=== PATIENT | female | born 1960 | race Caucasian/White ===

== ENCOUNTER 2016-03-03 08:28 | Emergency (ER) | payer OTHER ==
[~2016-03-03] VITALS: Ht 167.6 cm; Wt 58.6 kg
[~2016-03-03 08:28] MED LIST: GABA-526 PO; LITH300C PO; LTH150C PO; OMEP40CA6 PO; OXYB5SYR2 PO; PROP20TA4 PO; QUET200T23 PO
[2016-03-03 08:37] VITALS: Ht 167.6 cm; Wt 58.6 kg
[2016-03-03] MEDS ORDERED: ONDANSETRON 4 MG INJ ONE (08:58)
[2016-03-03] MEDS ORDERED: LORAZEPAM 1 MG TAB PO ONE (09:00)
[2016-03-03] MEDS ORDERED: ONDANSETRON (ODT) 4 MG TAB ODT STA (09:02)
[2016-03-03 10:21] VITALS: BP 103/60; PULSE 95; RESP 20; TEMP 98.3
[2016-03-03] MEDS ORDERED: CHLO25CA9 PO (10:42)
--- NOTE | 2016-03-03 11:15 | ERD ---
ER Documentation Chief Complaint Date/Time DATE: 03/03/16 TIME: 11:07 Chief Complaint BROUGHT IN VIA EMS DUE TO ALCOHOL WITHDRAWAL HPI This 56-year-old female presents with feeling shaky and nausea after binge drinking yesterday. States that she has been not drinking lately other she's had alcoholism in the past. She is on the wagon until a friend of hers past and she was having trouble coping so she drank alcohol. She has no suicidal or homicidal ideations. Denies fevers chills chest pain or shortness of breath. ROS All systems reviewed and are negative except as per history of present illness. Medications Home Meds Active Scripts Chlordiazepoxide* (Chlordiazepoxide*) 25 Mg Capsule, 25 MG PO DAILY, #10 CAP Take 3 tabs tomorrow on 03/03 Then 3 tabs the next day. Then 2 tabs for 3 days Then take 1 tab per day until gone Prov:TREE NICHOLSON DO 03/03/16 Reported Medications [place] Carbonate* (Del Sol*) 150 Mg Cap, 150 MG PO TID, CAP 12/08/15 [place] Carbonate* (Eskalith*) 300 Mg Capsule, 300 MG PO TID, CAP 12/08/15 Gabapentin* (Gabapentin*) 600 Mg Tablet, 600 MG PO BID, #60 TAB 12/08/15 Oxybutynin Chloride* (Oxybutynin Chloride*) 5 Mg/5 Ml Syrup, 5 MG PO DAILY, ML 11/01/15 Omeprazole* (Omeprazole*) 40 Mg Capsule.dr, 40 MG PO DAILY, #30 CAP 11/01/15 Quetiapine Fumarate* (Seroquel*) 200 Mg Tablet, 200 MG PO HS, #30 TAB 04/19/15 Propranolol Hcl* (Propranolol Hcl*) 20 Mg Tablet, 20 MG PO BID, TAB 12/26/14 Allergies Allergies: Coded Allergies: No Known Allergy (Unverified , 12/08/15) PMhx/Soc History of Surgery: Yes (EAR DRUM PLACEMENT) Anesthesia Reaction: No Hx Neurological Disorder: No Hx Respiratory Disorders: No Hx Cardiac Disorders: No Hx Psychiatric Problems: Yes (Bipolar, depression, anxiety) Hx Miscellaneous Medical Probl: Yes (HYSTERECTOMY, alcoholism) Hx Alcohol Use: Yes (daily) Hx Substance Use: No Hx Tobacco Use: Yes Smoking Status: Never smoker Physical Exam Vitals Vital Signs Date Time Temp Pulse Resp B/P Pulse Ox O2 Delivery O2 Flow Rate FiO2 03/03/16 10:21 98.3 95 20 103/60 100 Room Air 03/03/16 08:37 98.5 64 20 144/88 97 Physical Exam Const: [] No distress, apparently comfortable in a wheelchair Head: Atraumatic Eyes: Normal Conjunctiva, EOMI, PERRLA ENT: Normal External Ears, Nose and Mouth., Moist because membranes. Neck: Full range of motion..~ No meningismus. Resp: Clear to auscultation bilaterally Cardio: Regular rate and rhythm, no murmurs Abd: Soft, non tender, non distended. Normal bowel sounds Skin: No petechiae or rashes Back: No midline or flank tenderness Ext: No cyanosis, or edema Neur: Awake and alert oriented 3, cranial nerves II through XII intact, no cerebellar deficits, normal gait and no slurred speech. Psych: Normal Mood and Affect Results 24 hrs Current Medications Medications (Trade) Dose Ordered Sig/Donnie Route PRN Reason Start Time Stop Time Status Last Admin Dose Admin Lorazepam (Ativan) 1 mg ONCE ONCE PO 03/03/16 09:00 03/03/16 09:01 DC 03/03/16 09:01 Ondansetron HCl (Zofran Inj) 4 mg STK-MED ONCE .ROUTE 03/03/16 08:58 03/03/16 08:59 DC Ondansetron HCl (Zofran Odt) 4 mg ONCE STAT ODT 03/03/16 09:02 03/03/16 09:03 DC 03/03/16 09:11 Procedures/MDM Nausea and feeling "shaky" after binge drinking the night before. Patient has a heart rate of 66 and no signs of acute withdrawal and impending DTs. She was given Ativan by mouth and Zofran ODT which made her feel much better. Is taking good by mouth in the emergency room. I counseled her at the bedside for several minutes on alcohol cessation. She agrees that she needs to quit. We'll provide her with resources on this. A Renee giving her Librium taper to prevent withdrawals. I'm discharging with primary care follow-up in the next 2 days as well as the resources for alcohol detoxification. Departure Diagnosis: Primary Impression: Alcohol abuse Additional Impression: Nausea Condition: Stable Patient Instructions: Alcoholism: Getting Help Additional Instructions: Call your primary care doctor TOMORROW for an appointment during the next 1-2 days.See the doctor sooner or return here if your condition worsens before your appointment time. TREE NICHOLSON DO Mar 03, 2016 11:15
== END 2016-03-03 11:00 | disposition home or self-care (01) ==
LOC: E/R 08:28
DX: F10.10 Alcohol abuse, uncomplicated (principal); Z72.0 Tobacco use
CPT/HCPCS: J2405; Z7610; 99283

== ENCOUNTER 2016-03-10 21:15 | Emergency (ER) | payer OTHER ==
[~2016-03-10] VITALS: Ht 152.4 cm; Wt 55.0 kg
[~2016-03-10 21:15] MED LIST changes: +CHLO25CA9 PO; +QUET200T PO; -QUET200T23 PO
[2016-03-10 21:27] VITALS: Ht 152.4 cm; Wt 55.0 kg
[2016-03-10] MEDS ORDERED: HALOPERIDOL 5 MG INJ ONE (21:43)
[2016-03-10] MEDS ORDERED: DIPHENHYDRAMINE 50 MG INJ ONE (21:43)
[2016-03-10] MEDS ORDERED: LORAZEPAM 2 MG INJ ONE (21:43)
[2016-03-10] MEDS ORDERED: HALOPERIDOL 5 MG INJ IM ONE (22:00)
[2016-03-10] MEDS ORDERED: LORAZEPAM 2 MG INJ IM ONE (22:00)
[2016-03-10] MEDS ORDERED: DIPHENHYDRAMINE 50 MG INJ IM ONE (22:00)
--- NOTE | 2016-03-10 23:47 | ERD ---
ER Documentation Chief Complaint Date/Time DATE: 03/10/16 TIME: 23:47 Chief Complaint PT ELENA FROM HOME, ETOH. HPI Is a 56-year-old female was found down sleeping on the ground secondary to alcohol abuse. No evidence of trauma. Patient is combative here. Patient given Haldol and Ativan secondary to combative and d drunk behavior ROS All systems reviewed and are negative except as per history of present illness. Medications Home Meds Active Scripts Chlordiazepoxide* (Chlordiazepoxide*) 25 Mg Capsule, 25 MG PO DAILY, #10 CAP Take 3 tabs tomorrow on 03/03 Then 3 tabs the next day. Then 2 tabs for 3 days Then take 1 tab per day until gone Prov:LYNYASMINTREE DO 03/03/16 Reported Medications [place] Carbonate* ([place]*) 150 Mg Cap, 150 MG PO TID, CAP 12/08/15 [place] Carbonate* (Eskalith*) 300 Mg Capsule, 300 MG PO TID, CAP 12/08/15 Gabapentin* (Gabapentin*) 600 Mg Tablet, 600 MG PO BID, #60 TAB 12/08/15 Oxybutynin Chloride* (Oxybutynin Chloride*) 5 Mg/5 Ml Syrup, 5 MG PO DAILY, ML 11/01/15 Omeprazole* (Omeprazole*) 40 Mg Capsule.dr, 40 MG PO DAILY, #30 CAP 11/01/15 Quetiapine Fumarate* (Seroquel*) 200 Mg Tablet, 200 MG PO HS, #30 TAB 04/19/15 Propranolol Hcl* (Propranolol Hcl*) 20 Mg Tablet, 20 MG PO BID, TAB 12/26/14 Allergies Allergies: Coded Allergies: No Known Allergy (Unverified , 12/08/15) PMhx/Soc History of Surgery: Yes (EAR DRUM PLACEMENT) Anesthesia Reaction: No Hx Neurological Disorder: No Hx Respiratory Disorders: No Hx Cardiac Disorders: No Hx Psychiatric Problems: Yes (Bipolar, depression, anxiety) Hx Miscellaneous Medical Probl: Yes (HYSTERECTOMY, alcoholism) Hx Alcohol Use: Yes (daily) Hx Substance Use: No Hx Tobacco Use: Yes Smoking Status: Unknown if ever smoked Physical Exam Vitals Vital Signs Date Time Temp Pulse Resp B/P Pulse Ox O2 Delivery O2 Flow Rate FiO2 03/10/16 21:27 97.8 95 15 99/61 95 Physical Exam Const: [] Head: Atraumatic Eyes: Normal Conjunctiva ENT: Normal External Ears, Nose and Mouth. Neck: Full range of motion..~ No meningismus. Resp: Clear to auscultation bilaterally Cardio: Regular rate and rhythm, no murmurs Abd: Soft, non tender, non distended. Normal bowel sounds Skin: No petechiae or rashes Back: No midline or flank tenderness Ext: No cyanosis, or edema Neur: Awake and alert Psych: Normal Mood and Affect Results 24 hrs Current Medications Medications (Trade) Dose Ordered Sig/Donnie Route PRN Reason Start Time Stop Time Status Last Admin Dose Admin Haloperidol (Haldol) 5 mg ONCE ONCE IM 03/10/16 22:00 03/10/16 22:01 DC 03/10/16 21:57 Lorazepam (Ativan) 2 mg ONCE ONCE IM 03/10/16 22:00 03/10/16 22:01 DC 03/10/16 21:56 Diphenhydramine HCl (Benadryl) 50 mg ONCE ONCE IM 03/10/16 22:00 03/10/16 22:01 DC 03/10/16 21:57 Diphenhydramine HCl (Benadryl) 50 mg STK-MED ONCE .ROUTE 03/10/16 21:43 03/10/16 21:44 DC Haloperidol (Haldol) 5 mg STK-MED ONCE .ROUTE 03/10/16 21:43 03/10/16 21:44 DC Lorazepam (Ativan) 2 mg STK-MED ONCE .ROUTE 03/10/16 21:43 03/10/16 21:44 DC Procedures/MDM This is a patient comes in multiple times for alcohol intoxication. At this point is clinically stable patient in last summer. She was discharged home. Observation Note: Time: 4 hours Family Hx: No Hypertension Evaluation: Multiple exams showed improving symptoms and no evidence of [ XOXOXO] Departure Diagnosis: Primary Impression: Alcoholic intoxication Complication of substance-induced condition: uncomplicated Qualified Code: F10.120 - Alcoholic intoxication, uncomplicated Condition: Stable RUIZ PHAMGhazala Mar 10, 2016 23:47
[2016-03-11 05:50] VITALS: BP 98/58; PULSE 79; RESP 18
== END 2016-03-11 05:55 | disposition home or self-care (01) ==
LOC: E/R 21:15
DX: F10.120 Alcohol abuse with intoxication, uncomplicated (principal); R40.2242 Coma scale, best verbal response, confused conversation, at arrival to emergency department; R40.2362 Coma scale, best motor response, obeys commands, at arrival to emergency department; R40.2142 Coma scale, eyes open, spontaneous, at arrival to emergency department; Z87.891 Personal history of nicotine dependence
CPT/HCPCS: 96372; J1200; J1630; J2060; Z7502

== ENCOUNTER 2016-07-27 13:27 | Emergency (ER) | payer OTHER ==
[~2016-07-27] VITALS: Ht 165.1 cm; Wt 62.7 kg
[2016-07-27] MEDS ORDERED: ONDANSETRON (ODT) 4 MG TAB ODT STA (13:29)
[2016-07-27] MEDS ORDERED: LORAZEPAM 1 MG TAB PO ONE (13:30)
[2016-07-27 13:38] VITALS: BP 99/49; PULSE 52; RESP 18
[2016-07-27] MEDS ORDERED: ONDA4TAB14 PO (13:41)
[2016-07-27 13:42] VITALS: Ht 165.1 cm; Wt 62.7 kg
--- NOTE | 2016-07-27 15:06 | ERD ---
ER Documentation Chief Complaint Date/Time DATE: 07/27/16 TIME: 15:05 Chief Complaint anxiety HPI Patient is a 56-year-old female with alcohol abuse and sciatica who presents with withdrawal. She said that she has been sober for 5 months but drank alcohol last night at 9:30 PM. She also is seeing a pain management doctor and is been changed from a 10 mg buprenorphine patch to a 5 mg buprenorphine patch. The patient is feeling withdrawal symptoms. She feels anxious. She was brought in by ambulance. Upon review of old medical records the patient has multiple visits to the ER for similar complaints. Review of the emergency department information exchange shows visits to 4 separate emergency departments. ROS All systems reviewed and are negative except as per history of present illness. Medications Home Meds Active Scripts Ondansetron (Ondansetron Odt) 4 Mg Tab.rapdis, 4 MG PO Q6H Y for NAUSEA AND/OR VOMITING, #10 TAB Prov:JO VELEZ MD 07/27/16 Chlordiazepoxide* (Chlordiazepoxide*) 25 Mg Capsule, 25 MG PO DAILY, #10 CAP Take 3 tabs tomorrow on 03/03 Then 3 tabs the next day. Then 2 tabs for 3 days Then take 1 tab per day until gone Prov:TREE NICHOLSON DO 03/03/16 Reported Medications [place] Carbonate* (Cabot*) 150 Mg Cap, 150 MG PO TID, CAP 12/08/15 [place] Carbonate* (Eskalith*) 300 Mg Capsule, 300 MG PO TID, CAP 12/08/15 Gabapentin* (Gabapentin*) 600 Mg Tablet, 600 MG PO BID, #60 TAB 12/08/15 Oxybutynin Chloride* (Oxybutynin Chloride*) 5 Mg/5 Ml Syrup, 5 MG PO DAILY, ML 11/01/15 Omeprazole* (Omeprazole*) 40 Mg Capsule.dr, 40 MG PO DAILY, #30 CAP 11/01/15 Quetiapine Fumarate* (Seroquel*) 200 Mg Tablet, 200 MG PO HS, #30 TAB 04/19/15 Propranolol Hcl* (Propranolol Hcl*) 20 Mg Tablet, 20 MG PO BID, TAB 12/26/14 Allergies Allergies: Coded Allergies: No Known Allergy (Unverified , 12/08/15) PMhx/Soc Medical and Surgical Hx: pt denies Medical Hx, pt denies Surgical Hx History of Surgery: Yes (EAR DRUM PLACEMENT) Anesthesia Reaction: No Hx Neurological Disorder: No Hx Respiratory Disorders: No Hx Cardiac Disorders: No Hx Psychiatric Problems: No Hx Miscellaneous Medical Probl: No Hx Alcohol Use: Yes Hx Substance Use: Yes Hx Tobacco Use: No Smoking Status: Never smoker FmHx Family History: No diabetes Physical Exam Vitals Vital Signs Date Time Temp Pulse Resp B/P Pulse Ox O2 Delivery O2 Flow Rate FiO2 07/27/16 13:42 52 18 99/49 92 07/27/16 13:38 52 18 99/49 92 Room Air Physical Exam Const: Anxious Head: Atraumatic Eyes: Normal Conjunctiva ENT: Normal External Ears, Nose and Mouth. Neck: Full range of motion..~ No meningismus. Resp: Clear to auscultation bilaterally Cardio: Regular rate and rhythm, no murmurs Abd: Soft, non tender, non distended. Normal bowel sounds Skin: No petechiae or rashes Back: No midline or flank tenderness Ext: No cyanosis, or edema Neur: Awake and alert Psych: Anxious but without suicidal or homicidal ideation Results 24 hrs Current Medications Medications (Trade) Dose Ordered Sig/Donnie Route PRN Reason Start Time Stop Time Status Last Admin Dose Admin Lorazepam (Ativan) 1 mg ONCE ONCE PO 07/27/16 13:30 07/27/16 13:31 DC 07/27/16 13:38 Ondansetron HCl (Zofran Odt) 4 mg ONCE STAT ODT 07/27/16 13:29 07/27/16 13:30 DC 07/27/16 13:38 Procedures/MDM Patient is a 56-year-old female with alcohol abuse who presents with what appears to be withdrawal. The patient was given Ativan and Zofran and feels better. I do not believe she requires further workup or admission the hospital at this time. I doubt delirium tremens. The patient will be discharged home but will need to follow-up with the [facility] where she [facility] for her medical care. She can return for any worsening symptoms. I will not give her any prescriptions for controlled substances. I will give her prescription for Zofran as she said that she is having nausea and vomiting. Departure Diagnosis: Primary Impression: Withdrawal complaint Additional Impression: Anxiety attack Condition: Fair Patient Instructions: Alcohol Withdrawal, Panic Attack Additional Instructions: Call your primary care doctor TOMORROW for an appointment during the next 1-2 days.See the doctor sooner or return here if your condition worsens before your appointment time. JO VELEZ MD Jul 27, 2016 15:06
== END 2016-07-27 13:45 | disposition home or self-care (01) ==
LOC: E/R 13:27
DX: F41.9 Anxiety disorder, unspecified (principal); R40.2252 Coma scale, best verbal response, oriented, at arrival to emergency department; R40.2142 Coma scale, eyes open, spontaneous, at arrival to emergency department; R40.2362 Coma scale, best motor response, obeys commands, at arrival to emergency department
CPT/HCPCS: Z7502; Z7610; 99283

== ENCOUNTER 2016-08-21 10:50 | Emergency (ER) | payer OTHER ==
[~2016-08-21] VITALS: Ht 165.1 cm; Wt 65.9 kg
[~2016-08-21 10:50] MED LIST changes: +ONDA4TAB14 PO
[2016-08-21 10:54] VITALS: Ht 165.1 cm; Wt 65.9 kg
[2016-08-21] MEDS ORDERED: HALOPERIDOL 5 MG INJ IM ONE (11:00)
[2016-08-21 11:18] VITALS: PULSE 100; RESP 20
[2016-08-21] MEDS ORDERED: METHYLPREDNISOLONE 125 MG INJ IV ONE (12:00)
--- NOTE | 2016-08-21 15:03 | ERD ---
ER Documentation Chief Complaint Date/Time DATE: 08/21/16 TIME: 15:00 Chief Complaint BIB RA C/O ETOH INTOXICATION. PER PARAMEDICS PATIENT DRANK 1 BOTTLE VODKA HPI This 56-year-old female comes emergency room because a neighbor complained that she was on her couch yelling and drunk. Patient admits to drinking vodka today and admits to being intoxicated. She requests Ativan because "I like it". She denies any pain or any other physical symptoms. She does admit to drinking about 3 days a week. She has never gone through delirium tremens. She denies any trauma. ROS All systems reviewed and are negative except as per history of present illness. Medications Home Meds Active Scripts Ondansetron (Ondansetron Odt) 4 Mg Tab.rapdis, 4 MG PO Q6H Y for NAUSEA AND/OR VOMITING, #10 TAB Prov:JO VELEZ MD 07/27/16 Chlordiazepoxide* (Chlordiazepoxide*) 25 Mg Capsule, 25 MG PO DAILY, #10 CAP Take 3 tabs tomorrow on 03/03 Then 3 tabs the next day. Then 2 tabs for 3 days Then take 1 tab per day until gone Prov:TREE NICHOLSON DO 03/03/16 Reported Medications [place] Carbonate* ([place]*) 150 Mg Cap, 150 MG PO TID, CAP 12/08/15 [place] Carbonate* (Eskalith*) 300 Mg Capsule, 300 MG PO TID, CAP 12/08/15 Gabapentin* (Gabapentin*) 600 Mg Tablet, 600 MG PO BID, #60 TAB 12/08/15 Oxybutynin Chloride* (Oxybutynin Chloride*) 5 Mg/5 Ml Syrup, 5 MG PO DAILY, ML 11/01/15 Omeprazole* (Omeprazole*) 40 Mg Capsule.dr, 40 MG PO DAILY, #30 CAP 11/01/15 Quetiapine Fumarate* (Seroquel*) 200 Mg Tablet, 200 MG PO HS, #30 TAB 04/19/15 Propranolol Hcl* (Propranolol Hcl*) 20 Mg Tablet, 20 MG PO BID, TAB 12/26/14 Allergies Allergies: Coded Allergies: No Known Allergy (Unverified , 12/08/15) PMhx/Soc History of Surgery: Yes (EAR DRUM PLACEMENT) Anesthesia Reaction: No Hx Neurological Disorder: No Hx Respiratory Disorders: No Hx Cardiac Disorders: No Hx Psychiatric Problems: No Hx Miscellaneous Medical Probl: No Hx Alcohol Use: Yes Hx Substance Use: Yes Hx Tobacco Use: No Physical Exam Vitals Vital Signs Date Time Temp Pulse Resp B/P Pulse Ox O2 Delivery O2 Flow Rate FiO2 08/21/16 11:18 100 20 95 Room Air 08/21/16 10:54 98.7 82 20 142/72 100 Physical Exam Const: [] No distress, very agitated Head: Atraumatic Eyes: Normal Conjunctiva ENT: Normal External Ears, Nose and Mouth. Neck: Full range of motion..~ No meningismus. Resp: Clear to auscultation bilaterally Cardio: Regular rate and rhythm, no murmurs Abd: Soft, non tender, non distended. Normal bowel sounds Skin: No petechiae or rashes Back: No midline or flank tenderness Ext: No cyanosis, or edema Neur: Awake and alert and oriented 3, slight slurred speech, very agitated but able to cooperate with core cranial nerve exam, did not cooperate with finger to nose exam. Psych: Very agitated Results 24 hrs Current Medications Medications (Trade) Dose Ordered Sig/Donnie Route PRN Reason Start Time Stop Time Status Last Admin Dose Admin Haloperidol (Haldol) 5 mg ONCE ONCE IM 08/21/16 11:00 08/21/16 11:01 DC 08/21/16 11:06 Methylprednisolone Sodium Succinate (Solu-Medrol) 125 mg ONCE ONCE IV 08/21/16 12:00 08/21/16 12:15 DC Procedures/MDM 56-year-old intoxicated female. She was observed in the emergency room for over 4 hours during which she was allowed to sober up. She was initially given 5 mg of Haldol which did calm her down but she did not sleep. Performed a repeat neurologic exam at the 4 hour hosea when she was ambulating emergency room and acting calm and rational. She still has no signs of trauma. Has a totally normal neurological exam. I spent greater than 3 minutes discussing the dangers of alcoholism. Going to discharge with primary care follow-up and return precautions. Departure Diagnosis: Primary Impression: Alcoholic intoxication Condition: Stable Patient Instructions: Alcohol Intoxication, Alcohol Abuse Referrals: SHERWIN GRIGGS (PCP) Additional Instructions: Call your primary care doctor TOMORROW for an appointment during the next 1-2 days.See the doctor sooner or return here if your condition worsens before your appointment time. TREE NICHOLSON DO Aug 21, 2016 15:03
== END 2016-08-21 13:00 | disposition home or self-care (01) ==
LOC: E/R 10:50
DX: F10.120 Alcohol abuse with intoxication, uncomplicated (principal)
CPT/HCPCS: 96372; J1630; Z7502

== ENCOUNTER 2016-09-18 09:11 | Inpatient (IN) | payer OTHER ==
[2016-09-17 17:19] VITALS: BMI 23.1
[~2016-09-18] VITALS: Ht 165.1 cm; Wt 61.0 kg
[2016-09-18] VITALS (17 sets, daily range): BP systolic 102–138; BP diastolic 60–88; PULSE 64–85; RESP 13–31; Ht 165.1 cm; Wt 61.0 kg
[2016-09-18] MEDS ORDERED: DICY10CA60 PO (10:00)
[2016-09-18] MEDS ORDERED: OMEP20CA16 PO (10:00)
[2016-09-18] MEDS ORDERED: IBUP800T25 PO (10:01)
[2016-09-18] MEDS ORDERED: HYDR-3011 PO (10:02)
[2016-09-18] MEDS ORDERED: SOD CHLORIDE 0.9% 1,000 ML IV SCH (10:30)
[2016-09-18] MEDS ORDERED: CEFAZOLIN 2 GM/50 ML (PMX) 50 ML IVPB ONE (10:30)
[2016-09-18] MEDS ORDERED: LIDOCAINE 2% (SDV) 5 ML INJ ONE (12:00)
[2016-09-18] MEDS ORDERED: MIDAZOLAM 1 MG/ML 2 ML INJ ONE (12:23)
[2016-09-18] MEDS ORDERED: ROCURONIUM 50 MG INJ ONE (12:38)
[2016-09-18] MEDS ORDERED: PROPOFOL 60 ML ONE (12:38)
[2016-09-18] MEDS ORDERED: FENTAnyl 50 MCG/ML VIAL ONE (12:38)
[2016-09-18] MEDS ORDERED: DEXAMETHASONE 4 MG/ML 1 ML INJ ONE (12:39)
[2016-09-18] MEDS ORDERED: BUPIVACAINE 0.25% (MPF) 30 ML INJ ONE (12:40)
[2016-09-18] MEDS ORDERED: morphine 10 MG INJ ONE (12:52)
[2016-09-18] MEDS ORDERED: NEOSTIGMINE 3 MG/3 ML SYRINGE ONE (13:25)
[2016-09-18] MEDS ORDERED: GLYCOPYRROLATE 0.4 MG INJ ONE (13:26)
[2016-09-18] MEDS ORDERED: ONDANSETRON 4 MG INJ ONE (13:29)
[2016-09-18] MEDS ORDERED: KETOROLAC 30 MG INJ IV PRN (13:30)
[2016-09-18] MEDS ORDERED: CEFAZOLIN 2 GM/50 ML (PMX) 50 ML IVPB SCH (13:30)
[2016-09-18] MEDS ORDERED: LORAZEPAM 2 MG INJ ONE (13:51)
--- NOTE | 2016-09-18 13:56 | OPR ---
Date/Time of Note Date/Time of Note DATE: 09/18/16 TIME: 13:39 Operative Report Procedure Date: Sep 18, 2016 Preoperative Diagnosis incarcerated incisional hernia Postoperative Diagnosis 1. incarcerated incisional hernia 2. umbilical hernia Operation Performed 1. incarcerated incisional hernia repair cpt code 04503 2. umbilical hernia repair cpt code 46920 3. implantation of abdominal 92206 4. therapeutic injection of subcutaneous marcaine [id number] 5. lysis of adhesions one hour Surgeon: Boniat ANDRE Indications This is a 56-year-old female who has had prior ventral surgery. Patient developed an incarcerated incisional hernia. She required surgical repair. Additionally she has a reducible umbilical hernia which requests for repair. Risks alternatives benefits and percent were discussed the patient. Patient expresses understanding consents to the operation. Procedure Description Patient is taken to the OR and prepped and draped in usual sterile fashion. Surgical timeout was performed. IV antibiotics were given. Midline incision was made with a 10 blade over the prior incision. Dissection cautery was carried onto the hernia. The size of the hernia grasped with Vinay's. The hernia was entered sharply with Metzenbaum scissors. The incarcerated hernia was then reduced. The hernia had adhesions to the skin. The small bowel and omentum had also adhesions to the anterior abdominal wall. This was lysed. Lysis of adhesions was performed. This took approximately 1 hour. The fascial edges are identified. Approximately 2 3 cm the fascial edges were identified in all directions. An umbilical hernia was identified. This was reducible. This was closed with interrupted #1 Prolene. Underlay mesh with ventral light ST mesh 15 x 20 cm is secured in place with interrupted #1 Prolene in all directions. Approximately 45 cm of underlay coverage was placed which also covered both incisional and umbilical hernia. The midline incision was then closed with a running #1 loop PDS from superior to inferior and inferior superior performing primary closure. The wound is irrigated with antibiotic irrigation. The skin is closed using skin ana laura. Therapeutic subcutaneous Marcaine was injected all throughout the incision site. Dry dressings were applied. Bonita ANDRE Sep 18, 2016 13:49
[2016-09-18] MEDS ORDERED: MIDAZOLAM 1 MG/ML 2 ML INJ IV PRN (14:00)
[2016-09-18] MEDS ORDERED: LORAZEPAM 2 MG INJ IV PRN (14:00)
[2016-09-18] MEDS ORDERED: hydrALAzine 20 MG INJ IV PRN (14:00)
[2016-09-18] MEDS ORDERED: FENTAnyl 50 MCG/ML VIAL IV PRN ×3 (14:00)
[2016-09-18] MEDS ORDERED: LABETALOL HCL 20MG INJ IV PRN (14:00)
[2016-09-18] MEDS ORDERED: EPHEDrine SULFATE 50 MG/5 ML SYG IV PRN (14:00)
[2016-09-18] MEDS ORDERED: DIPHENHYDRAMINE 50 MG INJ IV PRN (14:00)
[2016-09-18] MEDS ORDERED: OXYCODONE/ACETAMINOPHEN (5/325) TAB PO PRN ×2 (14:00)
[2016-09-18] MEDS ORDERED: HYDROmorphONE (0.2 MG/ML) 10ML SYG IV PRN ×3 (14:00)
[2016-09-18] MEDS ORDERED: ONDANSETRON 4 MG INJ IV PRN (14:00)
[2016-09-18] MEDS ORDERED: MEPERIDINE 25 MG INJ IV PRN (14:00)
[2016-09-18] MEDS: SOD CHLORIDE 0.9% 1,000 ML IV SCH ×2 (14:05→23:29)
[2016-09-18 14:22] LABS: BASOPHILS % 0.1 % (0.0-2.0); EOSINOPHILS % 0.2 % (0.0-7.0); HEMOGLOBIN 12.6 g/dl (12.0-16.0); LYMPHOCYTES # 1.2 10^3/ul (0.8-2.9); LYMPHOCYTES % 10.4 % (15.0-51.0); MEAN CORPUSCULAR HEMOGLOBIN 29.8 pg (29.0-33.0); MEAN CORPUSCULAR HGB CONC 33.2 g/dl (32.0-37.0); MEAN CORPUSCULAR VOLUME 89.8 fl (82.0-101.0); MEAN PLATELET VOLUME 11.1 fl (7.4-10.4); MONOCYTE # 0.4 10^3/ul (0.3-0.9); MONOCYTES % 3.7 % (0.0-11.0); NEUTROPHIL # 9.5 10^3/ul (1.6-7.5); NEUTROPHILS % 85.1 % (39.0-77.0); PLATELET COUNT 219 10^3/UL (140-415); RED BLOOD COUNT 4.23 10^6/ul (4.20-5.40); RED CELL DISTRIBUTION WIDTH 13.6 % (11.5-14.5); WHITE BLOOD COUNT 11.1 10^3/ul (4.8-10.8)
[2016-09-18 14:39] LABS: ALBUMIN 4.1 g/dl (3.3-4.9); ALBUMIN/GLOBULIN RATIO 1.51; BILIRUBIN,INDIRECT 0.1 mg/dl (0-1.1); BILIRUBIN,TOTAL 0.1 mg/dl (0.2-1.3); TOTAL PROTEIN 6.8 g/dl (6.1-8.1)
[2016-09-18 14:46] LABS: CALCIUM 8.8 mg/dl (8.4-10.2); CREATININE 0.93 mg/dl (0.44-1.00); POTASSIUM 4.2 mmol/L (3.5-5.1)
[2016-09-18] MEDS: HYDROmorphONE 1 MG/ML SYG IV PRN ×2 (16:40→20:35)
[2016-09-18] MEDS: ONDANSETRON 4 MG INJ IV PRN (16:40)
[2016-09-18] MEDS ORDERED: DIPHENHYDRAMINE 25 MG CAP PO PRN (17:00)
[2016-09-18] MEDS: CEFAZOLIN 2 GM/50 ML (PMX) 50 ML IVPB SCH (19:55)
[2016-09-18] MEDS: QUETIAPINE 100 MG TAB PO SCH (21:27)
[2016-09-19] MEDS: ONDANSETRON 4 MG INJ IV PRN ×4 (00:48→23:00)
[2016-09-19] MEDS: HYDROmorphONE 1 MG/ML SYG IV PRN ×6 (00:48→20:39)
[2016-09-19] MEDS: SOD CHLORIDE 0.9% 1,000 ML IV SCH ×3 (00:51→23:51)
[2016-09-19 01:30] VITALS: BP 121/66; RESP 16
[2016-09-19] MEDS: CEFAZOLIN 2 GM/50 ML (PMX) 50 ML IVPB SCH ×2 (04:30→12:39)
[2016-09-19 07:41] VITALS: BP 132/77; RESP 18
--- NOTE | 2016-09-19 09:10 | PN ---
Date/Time of Note Date/Time of Note DATE: 09/19/16 TIME: 09:09 Assessment/Plan VTE Prophylaxis VTE Prophylaxis Intervention: SCD's Lines/Catheters IV Catheter Type (from Nrsg): Peripheral IV Assessment/Plan Chief Complaint/Hosp Course s/p large incarcerated incisional hernia repair with mesh Problems: Assessment/Plan tolerating diet and walking ok to dc when pain under control Subjective 24 Hr Interval Summary Free Text/Dictation doing well, tolerating diet but having pain as expected Exam/Review of Systems Vital Signs Vitals Vital Signs Date Time Temp Pulse Resp B/P Pulse Ox O2 Delivery O2 Flow Rate FiO2 09/19/16 07:41 98.1 71 18 132/77 95 09/18/16 17:00 Nasal Cannula 09/18/16 16:21 2.0 Intake and Output 09/18/16 09/18/16 09/19/16 15:00 23:00 07:00 Intake Total 1000 ml 250 ml 1650 ml Output Total 40 ml Balance 960 ml 250 ml 1650 ml Exam c/d/i Results Result Diagram: 09/18/16 1415 09/18/16 1415 Results 24 hrs Laboratory Tests Test 09/18/16 14:15 White Blood Count 11.1 #H Red Blood Count 4.23 Hemoglobin 12.6 Hematocrit 38.0 Mean Corpuscular Volume 89.8 Mean Corpuscular Hemoglobin 29.8 Mean Corpuscular Hemoglobin Concent 33.2 Red Cell Distribution Width 13.6 Platelet Count 219 Mean Platelet Volume 11.1 #H Neutrophils % 85.1 H Lymphocytes % 10.4 L Monocytes % 3.7 Eosinophils % 0.2 Basophils % 0.1 Nucleated Red Blood Cells % 0.0 Neutrophils # 9.5 H Lymphocytes # 1.2 Monocytes # 0.4 Eosinophils # 0.0 Basophils # 0.0 Nucleated Red Blood Cells # 0.0 Sodium Level 147 H Potassium Level 4.2 Chloride Level 108 Carbon Dioxide Level 25 Anion Gap 18 H Blood Urea Nitrogen 13 Creatinine 0.93 Glucose Level 102 Calcium Level 8.8 Total Bilirubin 0.1 L Direct Bilirubin 0.00 Indirect Bilirubin 0.1 Aspartate Amino Transf (AST/SGOT) 33 Alanine Aminotransferase (ALT/SGPT) 69 Alkaline Phosphatase 106 Total Protein 6.8 Albumin 4.1 Globulin 2.70 Albumin/Globulin Ratio 1.51 Medications Medications Current Medications Ketorolac Tromethamine 30 mg 30 mg Q6H PRN IV PAIN; Start 09/18/16 at 13:30; Stop 09/21/16 at 13:29 Sodium Chloride 1,000 ml @ 100 mls/hr Q10H IV Last administered on 09/19/16 00 :51; Admin Dose 100 MLS/HR; Start 09/18/16 at 13:29 Cefazolin Sodium/ Dextrose (Ancef 2 Gm/50 ml (Pmx)) 50 ml @ 100 mls/hr Q8H IVPB Last administered on 09/19/16 04:30; Admin Dose 100 MLS/HR; Start 09/18/16 at 20:30; Stop 09/19/16 at 12:59 Diphenhydramine HCl (Benadryl) 25 mg Q6H PRN PO ITCHING; Start 09/18/16 at 17:00 Hydromorphone HCl (Dilaudid) 1 mg Q4H PRN IV PAIN Last administered on 08:40; Admin Dose 1 MG; Start 09/18/16 at 17:00 Ondansetron HCl (Zofran Inj) 4 mg Q6H PRN IV NAUSEA AND/OR VOMITING Last administered on 09/19/16 08:46; Admin Dose 4 MG; Start 09/18/16 at 17:00 Quetiapine Fumarate (Seroquel) 200 mg QHS PO Last administered on 09/18/16 21: 27; Admin Dose 200 MG; Start 09/18/16 at 21:00 Bonita ANDRE Sep 19, 2016 09:09
--- NOTE | 2016-09-19 11:16 | HP ---
Date/Time of Note Date/Time of Note DATE: 09/19/16 TIME: 11:14 Assessment/Plan VTE Prophylaxis VTE Prophylaxis Intervention: other Lines/Catheters IV Catheter Type (from Nrsg): Peripheral IV Assessment/Plan Chief Complaint/Hosp Course 1) ventral hernia - s/p repair - pain medication 2) hypertension - continue medication Problems: HPI/ROS Admit Date/Time Admit Date/Time Sep 18, 2016 at 13:30 Hx of Present Illness Patient with hypertension comes in for ventral hernia. Patient underwent surgical repair. She is doing ok but complains of a large amount of pain PMH/Family/Social Past Medical History Medical History: hypertension Past Surgical History Past Surgical Hx: no surgical history Social History Smoking Status: Current every day smoker Exam/Review of Systems Vital Signs Vitals Vital Signs Date Time Temp Pulse Resp B/P Pulse Ox O2 Delivery O2 Flow Rate FiO2 09/19/16 07:41 98.1 71 18 132/77 95 09/18/16 17:00 Nasal Cannula 09/18/16 16:21 2.0 Intake and Output 09/18/16 09/18/16 09/19/16 15:00 23:00 07:00 Intake Total 1000 ml 250 ml 1650 ml Output Total 40 ml Balance 960 ml 250 ml 1650 ml Exam Constitutional: well developed Head: atraumatic, normocephalic Neck: supple Respiratory: clear to auscultation Cardiovascular: regular rate and rhythm Gastrointestinal: soft, tender Extremities: normal pulses Labs Result Diagram: 09/18/16 1415 09/18/16 1415 Medications Medications Current Medications Ketorolac Tromethamine 30 mg 30 mg Q6H PRN IV PAIN; Start 09/18/16 at 13:30; Stop 09/21/16 at 13:29 Sodium Chloride 1,000 ml @ 100 mls/hr Q10H IV Last administered on 09/19/16 00 :51; Admin Dose 100 MLS/HR; Start 09/18/16 at 13:29 Cefazolin Sodium/ Dextrose (Ancef 2 Gm/50 ml (Pmx)) 50 ml @ 100 mls/hr Q8H IVPB Last administered on 09/19/16 04:30; Admin Dose 100 MLS/HR; Start 09/18/16 at 20:30; Stop 09/19/16 at 12:59 Diphenhydramine HCl (Benadryl) 25 mg Q6H PRN PO ITCHING; Start 09/18/16 at 17:00 Hydromorphone HCl (Dilaudid) 1 mg Q4H PRN IV PAIN Last administered on 08:40; Admin Dose 1 MG; Start 09/18/16 at 17:00 Ondansetron HCl (Zofran Inj) 4 mg Q6H PRN IV NAUSEA AND/OR VOMITING Last administered on 09/19/16 08:46; Admin Dose 4 MG; Start 09/18/16 at 17:00 Quetiapine Fumarate (Seroquel) 200 mg QHS PO Last administered on 09/18/16 21: 27; Admin Dose 200 MG; Start 09/18/16 at 21:[address] EMERY Sep 19, 2016 11:16
[2016-09-19 11:24] LABS: BASOPHILS % 0.1 % (0.0-2.0); EOSINOPHILS % 0.1 % (0.0-7.0); HEMATOCRIT 39.3 % (37.0-47.0); HEMOGLOBIN 13.3 g/dl (12.0-16.0); LYMPHOCYTES # 1.4 10^3/ul (0.8-2.9); LYMPHOCYTES % 9.1 % (15.0-51.0); MEAN CORPUSCULAR HEMOGLOBIN 29.6 pg (29.0-33.0); MEAN CORPUSCULAR HGB CONC 33.8 g/dl (32.0-37.0); MEAN CORPUSCULAR VOLUME 87.3 fl (82.0-101.0); MEAN PLATELET VOLUME 11.2 fl (7.4-10.4); MONOCYTE # 1.2 10^3/ul (0.3-0.9); MONOCYTES % 8.3 % (0.0-11.0); NEUTROPHIL # 12.2 10^3/ul (1.6-7.5); NEUTROPHILS % 82.1 % (39.0-77.0); PLATELET COUNT 257 10^3/UL (140-415); RED CELL DISTRIBUTION WIDTH 13.3 % (11.5-14.5); WHITE BLOOD COUNT 14.9 10^3/ul (4.8-10.8)
[2016-09-19] MEDS ORDERED: hydrOXYzine HCL 25 MG TAB PO PRN (11:30)
[2016-09-19] MEDS ORDERED: IBUPROFEN 800 MG TAB PO PRN (11:30)
[2016-09-19 11:52] LABS: ALBUMIN/GLOBULIN RATIO 1.46
[2016-09-19 12:03] LABS: ALBUMIN 4.1 g/dl (3.3-4.9); BILIRUBIN,INDIRECT 0.3 mg/dl (0-1.1); BILIRUBIN,TOTAL 0.3 mg/dl (0.2-1.3); CALCIUM 9.2 mg/dl (8.4-10.2); CREATININE 0.8 mg/dl (0.44-1.00); POTASSIUM 3.8 mmol/L (3.5-5.1); TOTAL PROTEIN 6.9 g/dl (6.1-8.1)
[2016-09-19] MEDS: DICYCLOMINE 10 MG CAP PO SCH ×2 (12:40→20:39)
[2016-09-19 14:53] VITALS: BP 122/76; RESP 20
[2016-09-19 20:26] VITALS: BP 132/76; RESP 18
[2016-09-19] MEDS: PROPRANOLOL 20 MG TAB PO SCH (20:39)
[2016-09-19] MEDS: QUETIAPINE 100 MG TAB PO SCH ×2 (21:00)
[2016-09-20] MEDS: HYDROmorphONE 1 MG/ML SYG IV PRN ×6 (00:45→20:35)
[2016-09-20 01:51] VITALS: BP 129/70; RESP 16
[2016-09-20 07:38] VITALS: BP 138/71; RESP 22
[2016-09-20] MEDS: ONDANSETRON 4 MG INJ IV PRN ×3 (07:48→20:48)
[2016-09-20] MEDS: PROPRANOLOL 20 MG TAB PO SCH ×2 (08:26→21:00)
[2016-09-20] MEDS: DICYCLOMINE 10 MG CAP PO SCH ×3 (08:26→20:42)
[2016-09-20] MEDS: SOD CHLORIDE 0.9% 1,000 ML IV SCH ×2 (11:00→20:42)
--- NOTE | 2016-09-20 13:21 | PN ---
Date/Time of Note Date/Time of Note DATE: 09/20/16 TIME: 13:21 Assessment/Plan VTE Prophylaxis VTE Prophylaxis Intervention: other Lines/Catheters IV Catheter Type (from Nrsg): Peripheral IV Assessment/Plan Chief Complaint/Hosp Course 1) ventral hernia - s/p repair - pain medication 2) hypertension - continue medication Problems: Subjective 24 Hr Interval Summary Free Text/Dictation Patient still having a fair amount of pain Exam/Review of Systems Vital Signs Vitals Vital Signs Date Time Temp Pulse Resp B/P Pulse Ox O2 Delivery O2 Flow Rate FiO2 09/20/16 08:00 Nasal Cannula 2.0 09/20/16 07:38 98.6 88 22 138/71 92 Intake and Output 09/19/16 09/19/16 09/20/16 15:00 23:00 07:00 Intake Total 600 ml 950 ml 1600 ml Output Total 1600 ml Balance 600 ml -650 ml 1600 ml Exam Constitutional: well developed Head: atraumatic, normocephalic Neck: supple Respiratory: clear to auscultation Cardiovascular: regular rate and rhythm Gastrointestinal: non-tender, soft Extremities: normal pulses Results Result Diagram: 09/19/16 1045 09/19/16 1015 Medications Medications Current Medications Ketorolac Tromethamine 30 mg 30 mg Q6H PRN IV PAIN; Start 09/18/16 at 13:30; Stop 09/21/16 at 13:29 Sodium Chloride (NS) 1,000 ml @ 100 mls/hr Q10H IV Last administered on 23:51; Admin Dose 100 MLS/HR; Start 09/18/16 at 13:29 Diphenhydramine HCl (Benadryl) 25 mg Q6H PRN PO ITCHING; Start 09/18/16 at 17:00 Hydromorphone HCl (Dilaudid) 1 mg Q4H PRN IV PAIN Last administered on 12:35; Admin Dose 1 MG; Start 09/18/16 at 17:00 Ondansetron HCl (Zofran Inj) 4 mg Q6H PRN IV NAUSEA AND/OR VOMITING Last administered on 09/20/16 07:48; Admin Dose 4 MG; Start 09/18/16 at 17:00 Quetiapine Fumarate (Seroquel) 200 mg QHS PO Last administered on 09/18/16 21: 27; Admin Dose 200 MG; Start 09/18/16 at 21:00 Dicyclomine HCl (Bentyl) 20 mg TID PO Last administered on 09/20/16 12:34; Admin Dose 20 MG; Start 09/19/16 at 13:00 Hydroxyzine HCl (Atarax) 25 mg BID PRN PO ITCHING; Start 09/19/16 at 11:30 Ibuprofen (Motrin) 800 mg BID PRN PO PAIN; Start 09/19/16 at 11:30 Propranolol HCl (Inderal) 20 mg BID PO Last administered on 09/20/16 08:26; Admin Dose 20 MG; Start 09/19/16 at 21:00 Quetiapine Fumarate (Seroquel) 200 mg HS PO ; Start 09/19/16 at 21:[address] Sep 20, 2016 13:21
[2016-09-20 16:15] VITALS: BP 152/77; RESP 20
[2016-09-20 20:00] VITALS: BP 134/72; RESP 20
[2016-09-20] MEDS: QUETIAPINE 100 MG TAB PO SCH ×2 (21:00)
[2016-09-21] MEDS: HYDROmorphONE 1 MG/ML SYG IV PRN ×4 (00:52→11:49)
[2016-09-21 02:29] VITALS: BP 134/77; RESP 16
[2016-09-21] MEDS: ONDANSETRON 4 MG INJ IV PRN ×2 (04:34→10:33)
[2016-09-21] MEDS: SOD CHLORIDE 0.9% 1,000 ML IV SCH (06:48)
[2016-09-21 07:27] VITALS: BP 146/78; RESP 18
[2016-09-21] MEDS: DICYCLOMINE 10 MG CAP PO SCH ×2 (08:48→12:23)
[2016-09-21] MEDS: PROPRANOLOL 20 MG TAB PO SCH (08:48)
--- NOTE | 2016-09-21 11:28 | DS ---
Date/Time of Note Date/Time of Note DATE: 09/21/16 TIME: 11:27 Discharge Summary Admission/Discharge Info Admit Date/Time Sep 19, 2016 at 11:32 Discharge Date/Time 09/21/16 Discharge Diagnosis ventral hernia Patient Condition: Fair Consults surgery Procedures ventral hernia repair Hx of Present Illness Patient with hypertension comes in for ventral hernia. Patient underwent surgical repair. She is doing ok but complains of a large amount of pain Hospital Course Patient underwent ventral hernia repair. She tolerated the procedure well and after clearance from surgery, patient is sent home. 1) ventral hernia - s/p repair - pain medication 2) hypertension - continue medication Home Meds Reported Medications Hydroxyzine Hcl* (Hydroxyzine Hcl*) 25 Mg Tablet, 25 MG PO BID Y for ITCHING, # 30 TAB 09/18/16 Ibuprofen* (Ibuprofen*) 800 Mg Tab, 800 MG PO BID Y for PAIN, TAB 09/18/16 Omeprazole* (Omeprazole*) 20 Mg Capsule.dr, 20 MG PO DAILY, #30 CAP 09/18/16 Dicyclomine Hcl* (Bentyl*) 10 Mg Capsule, 20 MG PO TID, CAP 09/18/16 Quetiapine Fumarate* (Seroquel*) 200 Mg Tablet, 200 MG PO HS, #30 TAB 04/19/15 Propranolol Hcl* (Propranolol Hcl*) 20 Mg Tablet, 20 MG PO BID, TAB 12/26/14 Discontinued Reported Medications Saltese Carbonate* (Saltese*) 150 Mg Cap, 150 MG PO TID, CAP 12/08/15 Saltese Carbonate* (Eskalith*) 300 Mg Capsule, 300 MG PO TID, CAP 12/08/15 Gabapentin* (Gabapentin*) 600 Mg Tablet, 600 MG PO BID, #60 TAB 12/08/15 Oxybutynin Chloride* (Oxybutynin Chloride*) 5 Mg/5 Ml Syrup, 5 MG PO DAILY, ML 11/01/15 Omeprazole* (Omeprazole*) 40 Mg Capsule.dr, 40 MG PO DAILY, #30 CAP 11/01/15 Discontinued Scripts Ondansetron (Ondansetron Odt) 4 Mg Tab.rapdis, 4 MG PO Q6H Y for NAUSEA AND/OR VOMITING, #10 TAB Prov:JO VELEZ MD 07/27/16 Chlordiazepoxide* (Chlordiazepoxide*) 25 Mg Capsule, 25 MG PO DAILY, #10 CAP Take 3 tabs tomorrow on 03/03 Then 3 tabs the next day. Then 2 tabs for 3 days Then take 1 tab per day until gone Prov:TREE NICHOLSON DO 03/03/[address] [facility] Sep 21, 2016 11:28
== END 2016-09-21 14:25 | disposition home or self-care (01) | DRG 337 ==
LOC: SDS 09:11 → MS2 13:30 → OBSVTOIN 09-19 11:32
PROVIDERS: ADMIT Internal Medicine; ATTEND Surgery
PROC: 0DNW0ZZ Release Peritoneum, Open Approach (ICD-10-PCS; 2016-09-18)
PROC: 0WUF0JZ Supplement Abdominal Wall with Synthetic Substitute, Open Approach (ICD-10-PCS; principal; 2016-09-18 12:30)
DX: K43.0 Incisional hernia with obstruction, without gangrene (principal); I10 Essential (primary) hypertension; K42.9 Umbilical hernia without obstruction or gangrene; K66.0 Peritoneal adhesions (postprocedural) (postinfection)
CPT/HCPCS: 80053; 85025; C1781; G0378; J0690; J1100; J1170; J1200; J2060; J2175; J2250; J2270; J2405; J2710; J3010; J7030

== ENCOUNTER 2016-12-12 19:57 | Emergency (ER) | payer OTHER ==
[~2016-12-12] VITALS: Ht 165.1 cm; Wt 59.0 kg
[~2016-12-12 19:57] MED LIST changes: -CHLO25CA9 PO; +DICY10CA60 PO; -GABA-526 PO; +HYDR-3011 PO; +HYDR-906 PO; +IBUP800T25 PO; -LITH300C PO; -LTH150C PO; +OMEP20CA16 PO; -OMEP40CA6 PO; -ONDA4TAB14 PO; -OXYB5SYR2 PO
[2016-12-12 20:00] VITALS: Ht 165.1 cm; Wt 59.0 kg
[2016-12-12] MEDS ORDERED: LORAZEPAM 2 MG INJ IV STA (20:43)
[2016-12-12] MEDS ORDERED: SOD CHLORIDE 0.9% 1,000 ML IV STA (20:43)
[2016-12-12] MEDS ORDERED: ONDANSETRON 4 MG INJ IV STA (20:43)
[2016-12-12] MEDS ORDERED: LIDOCAINE/MYLANTA 40 ML BTL PO STA (20:43)
[2016-12-12] MEDS ORDERED: BELLADONNA/PHENOBARBITAL TAB PO STA (20:43)
[2016-12-12] MEDS ORDERED: MAGNESIUM SULFATE 2 GM, MULTIVITAMINS 10 ML, THIAMINE 100 MG, FOLIC ACID 1 MG in SOD CH... IV STA (20:43)
--- NOTE | 2016-12-12 20:53 | ERD ---
ER Documentation Chief Complaint Chief Complaint trish, n/v, fibromyalgia pain, TOURE, AP x 1day r/t ETOH withdrawal x3 days HPI 56-year-old woman with a history of alcohol abuse and anxiety presents anxious and states she is withdrawing. She states she has been drinking alcohol all week although drank much less over the last 2-3 days. She denies suicidal homicidal ideation, no fevers or chills, no chest pain or shortness of breath. Patient states she feels nauseous but denies vomiting or diarrhea, no dysuria, no headache or blurry vision. ROS All systems reviewed and are negative except as per history of present illness. Medications Home Meds Active Scripts Hydrocodone/Acetaminophen ([place] 5-325 Tablet) 1 Each Tablet, 1 EACH PO Q4 for PAIN, #30 TAB Prov:MAGOJOVANNYKEITH 10/08/16 Reported Medications Hydroxyzine Hcl* (Hydroxyzine Hcl*) 25 Mg Tablet, 25 MG PO BID Y for ITCHING, # 30 TAB 09/18/16 Ibuprofen* (Ibuprofen*) 800 Mg Tab, 800 MG PO BID Y for PAIN, TAB 09/18/16 Omeprazole* (Omeprazole*) 20 Mg Capsule.dr, 20 MG PO DAILY, #30 CAP 09/18/16 Dicyclomine Hcl* (Bentyl*) 10 Mg Capsule, 20 MG PO TID, CAP 09/18/16 Quetiapine Fumarate* (Seroquel*) 200 Mg Tablet, 200 MG PO HS, #30 TAB 04/19/15 Propranolol Hcl* (Propranolol Hcl*) 20 Mg Tablet, 20 MG PO BID, TAB 12/26/14 Allergies Allergies: Coded Allergies: No Known Allergy (Unverified , 09/18/16) PMhx/Soc Anxiety, fibromyalgia, hypertension, alcoholism History of Surgery: Yes (hernia repair, prosthesis eardrum LT ear(plastic), cholecystectomy) Anesthesia Reaction: No Hx Neurological Disorder: No Hx Respiratory Disorders: No Hx Cardiac Disorders: No Hx Psychiatric Problems: Yes (depression, anxiety) Hx Miscellaneous Medical Probl: Yes (fibromyalgia) Hx Alcohol Use: Yes (Vodka 2 bottles a day x2 days last drank in am) Hx Substance Use: No Hx Tobacco Use: Yes (2packs/day) Smoking Status: Current every day smoker FmHx Family History: No diabetes Physical Exam Vitals Vital Signs Date Time Temp Pulse Resp B/P Pulse Ox O2 Delivery O2 Flow Rate FiO2 12/12/16 20:00 100.1 110 22 102/67 98 Physical Exam GENERAL: Well-developed, well-nourished, tremulous, withdrawing, afebrile HEENT: Moist mucous membranes, pink conjunctiva, no cervical spine tenderness or step-off deformities, no goiter, no jaundice or icterus, extraocular movements intact without pain. No submandibular induration, and no pharyngeal erythema NEURO: Alert and oriented 3, tremulous, cranial nerves II through XII intact bilaterally, pupils equal round reactive to light, no focal deficits or facial asymmetry, sensation intact distally Strength 5/5 in upper and lower extremities bilaterally CARDIAC: Tachycardic and regular, no murmurs rubs or gallops LUNGS: Clear bilaterally no wheezing crackles or stridor ABDOMEN: Soft nontender, no guarding, no rigidity, no rebound, no psoas sign no obturator sign. Normoactive bowel sounds SKIN: Warm and dry to touch, no abrasions, contusions, or hematomas, no lacerations, no ecchymosis, no target lesions, and without ulcers EXTREMITIES: No clubbing cyanosis or edema, calves are bilaterally symmetrical, no Homans sign, no popliteal cord sign. Distal pulses equal and bilateral PSYCH: Appears anxious, agitated Result Diagram: 12/12/16200912/12/162009 Results 24 hrs Laboratory Tests Test 12/12/16 20:10 12/12/16 22:26 White Blood Count 17.910^3/ul Red Blood Count 4.5410^6/ul Hemoglobin 13.9g/dl Hematocrit 38.6% Mean Corpuscular Volume 85.0fl Mean Corpuscular Hemoglobin 30.6pg Mean Corpuscular Hemoglobin Concent 36.0g/dl Red Cell Distribution Width 13.1% Platelet Count 09954^3/UL Mean Platelet Volume 11.2fl Neutrophils % 88.4% Lymphocytes % 5.8% Monocytes % 5.1% Eosinophils % 0.0% Basophils % 0.2% Nucleated Red Blood Cells % 0.0/100WBC Neutrophils # 15.810^3/ul Lymphocytes # 1.010^3/ul Monocytes # 0.910^3/ul Eosinophils # 0.010^3/ul Basophils # 0.010^3/ul Nucleated Red Blood Cells # 0.010^3/ul Prothrombin Time 12.3Sec Prothrombin Time Ratio 1.0 INR International Normalized Ratio 0.91 Sodium Level 141mmol/L Potassium Level 3.5mmol/L Chloride Level 91mmol/L Carbon Dioxide Level 16mmol/L Anion Gap 38 Blood Urea Nitrogen 22mg/dl Creatinine 1.12mg/dl Glucose Level 83mg/dl Calcium Level 9.7mg/dl Total Bilirubin 0.4mg/dl Direct Bilirubin 0.00mg/dl Indirect Bilirubin 0.4mg/dl Aspartate Amino Transf (AST/SGOT) 85IU/L Alanine Aminotransferase (ALT/SGPT) 78IU/L Alkaline Phosphatase 162IU/L Total Protein 8.2g/dl Albumin 5.7g/dl Globulin 2.50g/dl Albumin/Globulin Ratio 2.28 Salicylates Level < 1.0mg/dl Acetaminophen Level < 10.0ug/ml Ethyl Alcohol Level 18.0mg/dl Urine Color STRAW Urine Clarity CLEAR Urine pH 6.0 Urine Specific [place] 1.012 Urine Ketones 2+mg/dL Urine Nitrite NEGATIVEmg/dL Urine Bilirubin NEGATIVEmg/dL Urine Urobilinogen NEGATIVEmg/dL Urine Leukocyte Esterase TRACELeu/ul Urine Microscopic RBC 1/HPF Urine Microscopic WBC 5/HPF Urine Hemoglobin 1+mg/dL Urine Glucose NEGATIVEmg/dL Urine Total Protein NEGATIVEmg/dl Current Medications Medications (Trade) Dose Ordered Sig/Donnie Route PRN Reason Start Time Stop Time Status Last Admin Dose Admin Sodium Chloride 1,000 ml @ 1,000 mls/hr Q1H STAT IV 12/12/16 20:43 12/12/16 21:42 DC 12/12/16 21:21 Magnesium Sulfate/ Multivitamins/ Thiamine HCl/ Folic Acid/Sodium Chloride (Magnesium Sulfate/Mvi Adult/ Vitamin B1/Folic Acid/NS) 1,015.2 ml @ 500 mls/ hr Q2H2M STAT IV 12/12/16 20:43 12/12/16 21:18 DC Lorazepam (Ativan) 1 mg ONCE STAT IV 12/12/16 20:43 12/12/16 20:46 DC 12/12/16 21:21 Ondansetron HCl (Zofran Inj) 4 mg ONCE STAT IV 12/12/16 20:43 12/12/16 20:46 DC 12/12/16 21:21 Miscellaneous Medication (Gi Cocktail (2)) 40 ml ONCE STAT PO 12/12/16 20:43 12/12/16 20:46 DC 12/12/16 21:37 Belladonna/ Phenobarbital 2 tab 2 tab ONCE STAT PO 12/12/16 20:43 12/12/16 20:46 DC 12/12/16 21:21 Magnesium Sulfate/ Multivitamins/ Thiamine HCl/ Sodium Chloride (Magnesium Sulfate/Mvi Adult/ Vitamin B1/NS) 1,015 ml @ 500 mls/hr Q2H2M STAT IV 12/12/16 21:18 12/12/16 22:44 DC Procedures/MDM IV line was established patient was placed on cardiac cath lab manager rhythm strip revealed a sinus tachycardia at 103 bpm with upright P and T waves. Patient was afebrile EKG performed, read by me revealed a sinus tachycardia at 103 bpm, normal axis, narrow QRS complex, no concerning ST elevations or depressions noted. I administered 1 L normal saline intravenously, 1 L banana bag, Zofran 4 mg IV, GI cocktail 30 cc p.o., and lorazepam 1 mg IV for her symptoms. Chest X-ray 1V Interpreted by me: Soft Tissue: No acute abnormalities Bones: No acute abnormalities Mediastinum/Cardiac Silhouette/Lungs: No acute abnormalities Urine analysis was negative for infection, CBC revealed leukocytosis, electrolytes unremarkable, liver function revealed mild transaminitis, troponin was negative, urine analysis was negative for infection. Patient felt much better after medications were administered and wanted to leave , I recommended she stay for continued evaluation and ED management although she refused she said she would follow-up with her PMD although I did invite her back if she has any continued symptoms, develops vomiting, fever, or other withdrawal symptoms. She stated her symptoms have completely resolved with above therapy. Differential diagnoses considered, included but not limited to acute coronary syndrome, pulmonary embolism, aortic dissection, abdominal aortic aneurysm, sepsis, stroke, meningitis, encephalitis, pneumonia, appendicitis, cholecystitis , bowel obstruction, pyelonephritis, nephrolithiasis, cystitis, as well as metabolic, hematologic, and electrolyte abnormalities. As well as abscess, cellulitis, fractures, and dislocations. Patient feels much better at this time, and vital signs are normal, symptoms have improved. I did give strict instructions to return to the ED if symptoms continue or worsen, patient will otherwise follow-up with primary care physician. Patient understood instructions and agreed to plan. Disclaimer: Inadvertent spelling and grammatical errors are likely due to EHR/ dictation software use and do not reflect on the overall quality of patient care. Also, please note that the electronic time recorded on this note does not necessarily reflect the actual time of the patient encounter. Departure Diagnosis: Primary Impression: Alcohol withdrawal syndrome Complication of substance-induced condition: uncomplicated Qualified Code: F10.230 - Alcohol withdrawal syndrome without complication Additional Impressions: Dehydration Leukocytosis Leukocytosis type: lymphocytosis Qualified Code: D72.820 - Lymphocytosis Condition: Good ROLAND ROBERTSON MD Dec 12, 2016 20:53
[2016-12-12 20:55] LABS: BASOPHILS % 0.2 % (0.0-2.0); HEMATOCRIT 38.6 % (37.0-47.0); HEMOGLOBIN 13.9 g/dl (12.0-16.0); LYMPHOCYTES % 5.8 % (15.0-51.0); MEAN CORPUSCULAR HEMOGLOBIN 30.6 pg (29.0-33.0); MEAN PLATELET VOLUME 11.2 fl (7.4-10.4); MONOCYTE # 0.9 10^3/ul (0.3-0.9); MONOCYTES % 5.1 % (0.0-11.0); NEUTROPHIL # 15.8 10^3/ul (1.6-7.5); NEUTROPHILS % 88.4 % (39.0-77.0); PLATELET COUNT 349 10^3/UL (140-415); RED BLOOD COUNT 4.54 10^6/ul (4.20-5.40); RED CELL DISTRIBUTION WIDTH 13.1 % (11.5-14.5); WHITE BLOOD COUNT 17.9 10^3/ul (4.8-10.8)
[2016-12-12 20:58] LABS: INR 0.91; PROTIME 12.3 Sec (12.2-14.2)
[2016-12-12 21:01] LABS: ACETAMINOPHEN < 10.0 ug/ml (10.0-30.0); ALANINE AMINOTRANSFERASE 78 IU/L (13-69); ALBUMIN 5.7 g/dl (3.3-4.9); ALBUMIN/GLOBULIN RATIO 2.28; ALKALINE PHOSPHATASE 162 IU/L (42-121); ASPARTATE AMINO TRANSFERASE 85 IU/L (15-46); BILIRUBIN,INDIRECT 0.4 mg/dl (0-1.1); BILIRUBIN,TOTAL 0.4 mg/dl (0.2-1.3); BLOOD UREA NITROGEN 22 mg/dl (7-20); CALCIUM 9.7 mg/dl (8.4-10.2); CARBON DIOXIDE 16 mmol/L (21-31); CHLORIDE 91 mmol/L (97-110); CREATININE 1.12 mg/dl (0.44-1.00); GLUCOSE 83 mg/dl (70-220); SODIUM 141 mmol/L (135-144); TOTAL PROTEIN 8.2 g/dl (6.1-8.1)
[2016-12-12 21:02] LABS: SALICYLATE < 1.0 mg/dl (5.0-30.0)
[2016-12-12] MEDS ORDERED: MAGNESIUM SULFATE 2 GM, MULTIVITAMINS 10 ML, THIAMINE 100 MG in SOD CHLORIDE 0.9% 1,000 ML IV STA (21:18)
[2016-12-12 21:24] LABS: ANION GAP 38 (8-16)
[2016-12-12 21:25] LABS: POTASSIUM 3.5 mmol/L (3.5-5.1)
--- NOTE | 2016-12-12 22:26 | RADRPT ---
PROCEDURE: XR Chest. CLINICAL INDICATION: Dyspnea TECHNIQUE: Single frontal chest x-ray. COMPARISON: Chest x-ray 10/03/2016 FINDINGS: The lungs are clear. No focal opacification is seen. The cardiomediastinal silhouette is unremarka ble. The osseous structures are unremarkable. IMPRESSION: 1. There is no acute cardiopulmonary process. RPTAT: PP .Abel Bergman MD, MD Date Time Electronically viewed and signed by .Abel Bergman MD, on 12/12/2016 22:26 .B/
[2016-12-12 22:53] LABS: ADD UMIC YES; UR ASCORBIC ACID NEGATIVE (NEGATIVE); UR BILIRUBIN (Dip) NEGATIVE (NEGATIVE); UR BLOOD (Dip) 1+ mg/dL (NEGATIVE); UR CLARITY CLEAR (CLEAR); UR COLOR STRAW (YELLOW); UR GLUCOSE (Dip) NEGATIVE (NEGATIVE); UR KETONES (Dip) 2+ mg/dL (NEGATIVE); UR LEUKOCYTE ESTERASE (Dip) TRACE Leu/ul (NEGATIVE); UR NITRITE (Dip) NEGATIVE (NEGATIVE); UR RBC 1 /HPF (0-5); UR SPECIFIC GRAVITY (Dip) 1.012 (1.003-1.030); UR TOTAL PROTEIN (Dip) NEGATIVE (NEGATIVE); UR UROBILINOGEN (Dip) NEGATIVE (NEGATIVE)
[2016-12-12] MEDS ORDERED: LORA10TA3 PO (23:23)
[2016-12-12] MEDS ORDERED: TRAM-40 PO (23:23)
[2016-12-12] MEDS ORDERED: ONDA4TAB14 PO (23:23)
[2016-12-12] MEDS ORDERED: ROPI0.25 PO (23:23)
[2016-12-12 23:30] VITALS: BP 135/91; PULSE 93; RESP 15; TEMP 100.2
[2016-12-12] MEDS ORDERED: LORA1TAB PO (23:34)
[2016-12-12] MEDS ORDERED: [UNRECOGNIZED DRUG - CODE] IJ (23:34)
== END 2016-12-12 23:48 | disposition home or self-care (01) ==
LOC: E/R 19:57
DX: F10.230 Alcohol dependence with withdrawal, uncomplicated (principal); E86.0 Dehydration; D72.820 Lymphocytosis (symptomatic); I10 Essential (primary) hypertension; F17.210 Nicotine dependence, cigarettes, uncomplicated; R07.9 Chest pain, unspecified
CPT/HCPCS: 36415; 71010; 80053; 80306; 81001; 85025; 85610; 93005; 96374; 96375; J2060; J2405; J3411; J3475; J7030; Z7502; Z7610

== ENCOUNTER 2017-07-23 19:29 | Inpatient (IN) | END 2017-07-28 18:25 | disposition home or self-care (01) | DRG 921 ==

== ENCOUNTER 2017-09-26 18:53 | Emergency (ER) | END 2017-09-26 20:55 | disposition home or self-care (01) ==

== ENCOUNTER 2017-09-26 23:55 | Emergency (ER) | END 2017-09-27 01:56 | disposition left against medical advice (07) ==

== ENCOUNTER 2017-09-28 05:09 | Emergency (ER) | END 2017-09-28 07:58 | disposition left against medical advice (07) ==